=== PATIENT | male | born 1970 | race Caucasian/White ===

== ENCOUNTER 2025-06-28 10:10 | Emergency (ER) | payer MEDICARE, SELFPAY ==
--- NOTE | 2025-06-28 10:29 | ED_ITS ---
HPI - Skin/Abscess/Foreign Bdy General Chief complaint: Skin/Abscess/Foreign Body Stated complaint: shingles symptoms? Time Seen by Provider: 06/28/25 10:35 Source: patient Mode of arrival: ambulatory Limitations: no limitations History of Present Illness HPI narrative: Shivam is a 55-year-old male patient presenting to the clinic today with complaints of possible rash. He reports he noticed the rash this morning on his back, left side, and abdomen. States the rash is painful. Denies any fevers, or chills. Denies any environmental changes. Has not taken any medications for his symptoms. Related Data Home Medications ?Medication ?Instructions ?Recorded ?Confirmed ?Last Taken ?Type albuterol sulfate 90 mcg/actuation inhalation 06/28/25 Unknown History aerosol inhaler hydrocodone 5 mg-acetaminophen 325 tablet 06/28/25 Un known History mg tablet lisinopril 30 mg tablet mg 06/28/25 Unknown History methocarbamol 500 mg tablet mg 06/28/25 Unknown Histo ry tiotropium bromide 2.5 inhalation 06/28/25 Unknown History mcg/actuation mist for inhalation (Spiriva Respimat) Allergies Allergy/AdvReac Type Severity Reaction Status Date / Time No Known Allergies Allergy Verified 06/28/25 10:26 Review of Systems Review of Systems: Pertinent positives per HPI. Patient denies any fever, chills, headache, visual changes, dizziness, cough, runny nose, sore throat, shortness of breath, chest pain, palpitations, nausea, vomiting, diarrhea, constipation, abdominal pain, or any urinary issues. PMFSH Comments At the time of my signature, I reviewed and agree with the nursing past medical, surgical, social, and family history. There is no relevant family history pertinent to the patient complaint. Exam Narrative: General: Well-developed, well nourished, in no apparent distress Head: Normocephalic, atraumatic. Cardio: Regular rate and rhythm, s1 and s2 normal, no murmur appreciated. Resp: Clear to auscultation bilaterally, no rhonchi, rales, wheezing or rubs. Integumentary: [place], warm, and dry, red, raised, painful, erythematous base rash with vesicular lesions in clusters on the mid back, left lateral side, and mid chest consistent with herpes zoster Course Course Emergency Course: Portions of this record may have been created with voice recognition software. Level of Care: Express Care Visit Vital Signs Vital signs: Vital signs reviewed MDM - Skin/Abscess/Foreign Bdy MDM Narrative Medical decision making narrative: At the time of visit patient is resting comfortably on the exam table. Patient appears to be nontoxic. complaints of possible rash. He reports he noticed the rash this morning on his back, left side, and abdomen. States the rash is painful. Denies any fevers, or chills. Denies any environmental changes. Has not taken any medications for his symptoms. On exam patient has red, raised, painful, erythematous base rash with vesicular lesions in clusters on the mid back, left lateral side, and mid chest consistent with herpes zoster Plan: I suspect patient has herpes zoster. Prescription for acyclovir was sent to the pharmacy. Supportive measures were discussed with the patient and they voiced understanding discharge instructions and agrees to treatment plan. Return precautions reviewed Differential Diagnosis Differential diagnosis: Likely abscess of skin or subcutaneous tissue, viral exanthem, dermatophytosis, urticaria, herpes zoster, allergic reaction to drug, cellulitis, insect bites, impetigo and contact dermatitis Discharge Plan Discharge Clinical Impression: Herpes zoster Qualifiers: Herpes zoster complications: without complications Qualified Code(s): B02.9 - Zoster without complications Patient Disposition: Home Condition: Stable Instructions: Antibiotic Form, Shingles (ED) Additional Instructions: Take any prescription medication only as prescribed-acyclovir May apply lidocaine patches to the areas to help alleviate pain May take Tylenol/ibuprofen as needed for pain Rash is considered contagious until is crusted over-keep the area covered especially if it is draining Stay away from people who are , immunocompromise, or have not had the chickenpox vaccine Follow up with your PCP in 3-5 days if symptom persist. Patient Language: Faroese Prescriptions: New acyclovir 800 mg tablet 800 mg PO Q4H 7 Days Qty: 42 0RF Rx Instructions: while awake; give 5 doses in 24 hours No Action methocarbamol 500 mg tablet hydrocodone-acetaminophen 5-325 mg tablet lisinopril 30 mg tablet albuterol sulfate 90 mcg/actuation HFA aerosol inhaler INHALATION Spiriva Respimat 2.5 mcg/actuation mist INHALATION Follow-up/Referrals: Harms,Alli Woods M.D. [Primary Care Provider] Time of Disposition: 10:33 Quality NIHSS Nursing Documentation ED NIHSS nursing documentation: reviewed/agree
[2025-06-28 10:31] VITALS: BP 136/72; PULSE 73; RESP 18; TEMP 36.2; O2SAT 100
--- OUTSIDE RECORDS SUMMARY | 2025-06-28 10:47 | XMS_ITS | Clinical Summary ---
Author Organization [facility] Building A Address [address] [place] [address] Care Team Providers Care Strapping Machine Operator Name Role Phone Alli Rowan MD Primary Care Provider [phone] Darrius Singletary PT Unavailable Unavaila Milena Carroll LOG HANDLER Unavailable Unavailab le Allergies No known active allergies Medications meloxicam (MOBIC) 15 mg tabletIndicatio ns:Osteoarthrit is Take 1 tablet (15 mg total) by mouth daily 90 tablet 3 10/27/19 25 026 Active albuterol HFA (PROVENTIL HFA,VENTOLIN HFA,PROAIR HFA) 90 mcg/actuation inhalerIndicati ons:Chronic obstructive pulmonary disease, unspecified COPD type (HCC) Inhale 2 puffs every 4 (four) hours as needed for wheezing 9 g 3 10/27/19 25 Active calcitonin (MIACALCIN) 200 unit/actuation nasal sprayIndication s:Post-Menopaus al Osteoporosis ADMINISTER 1 SPRAY INTO ONE NOSTRIL DAILY 4 mL 1 11/12/19 25 026 Active lisinopriL (PRINIVIL,ZESTR [place]) 30 mg tabletIndicatio ns:Benign hypertension Take 1 tablet by mouth once daily 100 tablet 1 04/07/20 25 Active methocarbamoL (ROBAXIN) 500 mg tablet Take 1 tablet (500 mg total) by mouth 2 (two) times a day 20 tablet 05/22/20 25 Active HYDROcodone-yoselyn taminophen (NORCO) 5-325 mg per tabletIndicatio ns:Pain Take 1 tablet by mouth every 6 (six) hours as needed for pain for up to 16 doses 16 tablet 05/22/20 25 Active Additional Information Patient not taking.Reported on 05/29/2025 Spiriva Respimat 2.5 mcg/actuation inhalerIndicati ons:Chronic obstructive pulmonary disease, unspecified COPD type (HCC) INHALE 2 SPRAY(S) BY MOUTH ONCE DAILY 4 g 06/05/20 25 Active Spiriva Respimat 2.5 mcg/actuation inhalerIndicati ons:Chronic obstructive pulmonary disease, unspecified COPD type (HCC) INHALE 2 SPRAY(S) BY MOUTH ONCE DAILY 4 g 04/26/20 25 025 Discontinued Hospital, Clinic, or Other Facility Administered Medication Ordered Dose Route Frequency Start Date End Date Status lidocaine (XYLOCAINE) 20 mg/mL (2 %) injection 4 mLIndications:Admi nistration of Local Anesthesia 4 mL OTHER One-Time Injection 05/29/2025 05/29/2025 Ended methylPREDNISolone acetate (DEPO-medrol) injection 80 mgIndications:Troc hanteric bursitis of left hip 80 mg intra-artic One-Time Injection 05/29/2025 05/29/2025 Ended Active Problems Problem Noted Date Diagnosed Date Chronic pain syndrome 11/23/2024 Assessment & Plan (11/23/2024 8:38 AM SYRUP MIXER ASSISTANT): See discussion as above. Completed online form. Medicare annual wellness visit, subsequent 10/27 Assessment & Plan (10/27/2024 10:33 AM SYRUP MIXER ASSISTANT): In regard to health maintenance, Colonoscopy- UTD PSA- UTD Influenza vaccine- Declined Pneumococcal vaccine- Declined Shingrix vaccine- Declined Eat a healthy diet: focus on lean meats and proteins, more fruits, vegetables and whole grains and low in sugars and fats. Limit red meat and avoid processed meat. Maintain a healthy weight; avoid being overweight. Aim for a normal body mass index (BMI) of 18.5-24.9. Help learning to eat healthier, we can set up appointment with freight loading supervisor/flake cutter operator. Have an active lifestyle, strive for 30 minutes of moderate exercise 5 times a week and strength or resistance training at least twice a week. Use broad-spectrum (UVA+UVB) sunscreen with SPF 30 or greater, is water resistant, limit time spent in the sun (10 am-4pm), wear hat, wear UV protective clothing, wear sunglasses. Never use a tanning bed. Skin that was irradiated may be more sensitive over your lifetime. Do not smoke or chew tobacco; participate in a smoking cessation program. Complete alcohol cesation Trochanteric bursitis of left hip 10/27/2024 Assessment & Plan (11/23/2024 8:38 AM SYRUP MIXER ASSISTANT): Continue f/u with orthopedics and continue on meloxicam and injections Assessment & Plan (10/27/2024 10:25 AM SYRUP MIXER ASSISTANT): Continued L hip pain but states is controlled with Meloxicam. Refill placed. Continues to use Aleve and Tylenol in the afternoon/evening. Mother states they are wanting to talk about Marijuana card as well. Informed this provider is not licensed in that. Will continue to monitor. Also follows with ortho. BMI 22.0-22.9, adult 10/27/2024 Assessment & Plan (03/08/2025 12:19 PM CDT): Weight appropriate for patient. Assessment & Plan (10/27/2024 10:25 AM SYRUP MIXER ASSISTANT): Weight appropriate for patient. Chronic obstructive pulmonary disease 10/27/2024 Assessment & Plan (11/23/2024 8:37 AM SYRUP MIXER ASSISTANT): Reviewed pulmonary toilet. Ontinues on tiotropium and albuterol. Assessment & Plan (10/27/2024 10:26 AM SYRUP MIXER ASSISTANT): Stable. Continues with daily and persistent dry cough with no sputum production. Will continue to monitor. Refilled Spiriva and albuterol inhaler PRN. Alcoholic cirrhosis, unspecified whether ascites present 10/27/2024 Assessment & Plan (10/27/2024 10:32 AM SYRUP MIXER ASSISTANT): Continues to monitor liver function. Stable and controlled. Encouraged alcohol cessation. Will continue to monitor. Heterozygous alpha 1-antitrypsin deficiency 11/0 01/2024 Assessment & Plan (10/27/2024 10:31 AM SYRUP MIXER ASSISTANT): Encouraged smoking cessation. Will continue to monitor. Alcoholism 08/14/2024 Assessment & Plan (10/27/2024 10:31 AM SYRUP MIXER ASSISTANT): Encouraged complete alcohol cessation. Will continue to monitor. Hypertension, essential 04/25/2024 Assessment & Plan (10/27/2024 9:57 AM SYRUP MIXER ASSISTANT): Blood pressure stable and well controlled. Will continue to monitor. Continues on Lisinopril. Assessment & Plan (04/25/2024 10:00 AM CDT): Blood pressure is well controlled, continue present management with lisinopril 30 mg daily. Closed fracture of left distal radius and ulna 0 12/31/2023 Assessment & Plan (12/31/2023 11:54 AM CDT): Referred to Plastic/hand specialists. Instructed to continued rest, ice and elevation. Keep splint in place. Neurovascularly intact. Pain has been managed well with acetaminophen, discussed use of ibuprofen. Closed fracture of twelfth thoracic vertebra Hyponatremia 09/28/2020 Assessment & Plan (09/05/2022 8:28 AM SYRUP MIXER ASSISTANT): 52M who presented to the emergency department from the bar due to cramping in his hands and legs bilaterally, worst in his left hand after drinking a reported 4 beers. Given his history of chronic alcohol abuse, beer potomania should be considered as a differential. As this patient had biphasic wheeze and bronchial breath sounds in the absence of a noted diagnosed respiratory illness, SIADH due to an underlying pathology should also be considered. - Fluid restriction 1L/day - Stop IV Fluids - Serum and urine osmolality - Latest Na+ 133 (09/04), watch Na+ closely Microcytic anemia 09/28/2020 Assessment & Plan (04/25/2024 10:00 AM CDT): Will check iron profile with labs. Again encouraged patient to limit ETOH intake. Encouraged healthy diet, eating several small meals frequently throughout the day. Increase iron rich foods. Assessment & Plan (09/04/2022 8:31 AM SYRUP MIXER ASSISTANT): Pt anemic at 11.4. Microcytic as MCV 79.6. Likely iron deficiency anemia. - Iron studies +/- replacement Alcohol abuse 05/01/2020 Assessment & Plan (10/27/2024 9:57 AM SYRUP MIXER ASSISTANT): Decreased since moved in with his mother. Continue to educate on limiting drinking or cessation if possible. Assessment & Plan (04/25/2024 9:59 AM CDT): Discuss long-term health consequences of chronic alcohol use. Discussed need to stopped drinking to improve liver function and overall health. Recommended patient start vitamin supplement, such as men's daily multivitamin in addition to folic acid. Will check nutritional deficiencies as labs Assessment & Plan (09/04/2022 8:27 AM SYRUP MIXER ASSISTANT): History of chronic alcohol abuse. Patient states he drinks 18-19 cans of beer per week. He reports he last drank at the bar on 09/03, where after four beers he attended he ED. - prn librium as per CIWA protocol Nausea 03/26/2020 Assessment & Plan (03/26/2020 3:50 PM CDT): Briefed on brat diet. Avoid stimulating items. Diarrhea 03/26/2020 Assessment & Plan (03/26/2020 3:50 PM CDT): May use qeku-ljq-nhaiast anti spasmodic as directed on package. Increase hydration. Tobacco dependence 12/15/2017 Assessment & Plan (10/27/2024 9:56 AM SYRUP MIXER ASSISTANT): Precontemplative. Encouraged complete smoking cessation. Discussed different types of medications & hpyh-wfq-hzncjeq aides to help with cessation. He does admit to decreased smoking due to not drinking at his mother's house or smoking in her house. Assessment & Plan (09/04/2022 8:27 AM SYRUP MIXER ASSISTANT): Pt states he smokes when he drinks, which varies but would amount to 6 cigarettes per day. - Counseled on smoking cessation Assessment & Plan (10/24/2019 1:45 PM SYRUP MIXER ASSISTANT): Does not wish to stop this time. Advised on methods to stop smoking if he needs help to contact us. Elevated LFTs 12/15/2017 Assessment & Plan (10/24/2019 1:46 PM SYRUP MIXER ASSISTANT): Will await follow-up labs and CBC Vitamin D deficiency 02/24/2014 Overview (01/15/2017): VITAMIN D DEFICIENCY NOS Assessment & Plan (10/24/2019 1:46 PM SYRUP MIXER ASSISTANT): Will await pending lab work. Advised to maintain using D3 daily and obtain 15 minutes [place] daily. Osteoporosis Overview (09/28/2020): Osteoporosis Bronchitis Overview (09/28/2020): Bronchitis Resolved Problems Problem Noted Date Diagnosed Date Resolved Date Hypertension 05/20/2016 10/27/2024 Overview (01/15/2017): BENIGN HYPERTENSION Assessment & Plan (09/04/2022 8:07 AM SYRUP MIXER ASSISTANT): 52yo male with longstanding history of HTN. - Elevated BP on arrival around 160/94 - Has now settled to 126/74 - Continue lisinopril 30mg daily Assessment & Plan (10/24/2019 1:45 PM SYRUP MIXER ASSISTANT): Will current we continue lisinopril. Advised to limit salt diet. Follow-up in 6 months Encounters Date Type Department Care Team Description 05/29/2025 2:45 PM CDT Office Visit [facility] Orthopedics and Sports Medicine [address] [place] [address] [address] [place] [address] Rose Boggs PA Trochanteric bursitis of left hip (Primary Dx) 05/24/2025 Telephone [facility] [address] [place] [address] Alli Rowan MD ED follow up call-pt referral requested 05/24/2025 [facility] ED Outreach [facility] Organization [address] [place] [address] Emmy Da Silva MA 05/23/2025 Telephone [facility] Orthopedics and Sports Medicine [address] [facility] [address] [place] [id number] Toma Payton MA 05/22/2025 10:50 PM CDT - 05/23/2025 12:15 AM CDT Emergency [facility] Emergency Department [address] [place] [address] Fall, initial encounter (Primary Dx) Discharge Disposition: Discharge to home or self care 05/07/2025 Telephone [facility] [address] [address] Alli Rowan MD from Last 3 Months Immunizations Immunization Administration Dates Next Due DT 05/11/1981 DTP 09/16/1973,1971,1971 ,1971 Influenza, Unspecified 03/08/2025(Deferr ed: Patient Refused),10/27/2024(Deferred: Patient Refused),06/11/2024(Deferred: Patient Refused),06/11/2024(Deferred: Patient Refused),04/25/2024(Deferred: Patient Refused),12/31/2023(Deferred: Patient Refused),07/11/2023(Deferred: Patient Refused),07/11/2023(Deferred: Patient Refused),07/09/2023(Deferred: Patient Refused),07/09/2023(Deferred: Patient Refused),10/11/2022(Deferred: Patient Refused),09/14/2022(Deferred: Patient Refused),07/11/2022(Deferred: Patient Refused),07/11/2022(Deferred: Patient Refused),07/09/2022(Deferred: Patient Refused),06/11/2022(Deferred: Patient Refused),04/24/2022(Deferred: Patient Refused),04/24/2022(Deferred: Patient Refused),12/15/2021(Deferred: Patient Refused),10/11/2021(Deferred: Patient Refused),06/11/2021(Deferred: Patient Refused),06/11/2021(Deferred: Patient Refused),06/11/2021(Deferred: Patient Refused),06/02/2021(Deferred: Patient Refused),12/17/2020(Deferred: Patient Refused),10/11/2020(Deferred: Patient Refused),07/11/2020(Deferred: Patient Refused),10/24/2019(Deferred: Patient Refused),10/11/2019(Deferred: Patient Refused),10/11/2019(Deferred: Patient Refused),10/11/2019(Deferred: Patient Refused),12/06/2018(Deferred: Patient Refused),10/11/2018(Deferred: Patient Refused),08/23/2018(Deferred: Patient Refused - Never) MMR 03/13/1975 Measles 05/03/1972 Surgical History Surgery Date Site/Laterality Comments OPEN REDUCTION INTERNAL FIXATION 10/11/2007 - 10/10/2008 ORIF OTHER SURGICAL HISTORY 10/11/2014 - 10/10/2015 Pneumonia: Medical Management SHOULDER SURGERY 09/10/2017 - 10/10/2017 repaired shoulder fracture COLONOSCOPY 05/13/2021 Medical History Medical History Date Comments Hypertension Hypertension Osteoporosis Osteoporosis Alcoholism (HCC) alcoholism Hx Other Medical 09/27/2012 ER visit for ri ght flank pain Bronchitis Bronchitis Hx Other Medical Pneumonia Alcohol abuse Family History Medical History Relation Name Comments Diabetes type II Mother Preeti Diabetes -T ype II; Relation Name Status Comments Father Step Father Alive Mother Preeti Alive Sister Jacqueline Alive Social History Tobacco Use Types Packs/Day Years Used Date Smoking Tobacco: Every Day Cigarettes 0.5 34.3 Started: 1991 Smokeless Tobacco: Never Tobacco Cessation:Ready to Q uit: Not Asked; Counseling Given: Not Answered Comments:Pt claims that he smokes 1 cig per beer, does not smoke until he drinks Alcohol Use Standard Drinks/Week Comments Yes 12 (1 standard drink = 0.6 oz pu re alcohol) Daily AUDIT-C Answer Date Recorded Q1: How often do you have a drink containing alc ohol? Monthly or less 11/30/2024 Q2: How many drinks containi ng alcohol do you have on a typical day when you are drinking? 1 or 2 11/30/2024 Q3: How often do you have si x or more drinks on one occasion? Monthly 11/30/2024 PHQ-2 Answer Date Recorded PHQ-2 Total Score (If total score is 3 or more points, staff should administer the PHQ-9) 0 03/08/2025 Personal Safety Answer Date Recorded Have you ever been in or are you currently in a harmful physical or emotional relationship or is someone making you feel afraid or unsafe? Denies 05/22/2025 Sex and Gender Information Value Date Recorded Sex Assigned at Not on file Legal Sex Male 3:12 PM SYRUP MIXER ASSISTANT Gender Identity Not on file Sexual Orientation Not on file Obstetrics History Last Filed Vital Signs Vital Sign Reading Time Taken Comments Blood Pressure 140/89 05/29/2025 2:00 PM CDT Pulse 81 05/29/2025 2:00 PM CDT Temperature 35.9 C (96.7 F) 05/22/2025 10:04 PM CDT Respiratory Rate 20 05/22/2025 10:04 PM CDT Oxygen Saturation 97% 05/22/2025 10:04 PM CDT Inhaled Oxygen Concentration - - Weight 79.5 kg (175 lb 3.2 oz) 05/29/2025 2:00 P M CDT Height 182.9 cm (6') 05/29/2025 2:00 PM CDT Body Mass Index 23.76 05/29/2025 2:00 PM CDT Plan of Treatment Health Maintenance Due Date Last Done Comments Hepatitis B Screening 1989 Pneumococcal vaccine <65 (1 of 2 - PCV) 1990 DTaP/Tdap/Td Vaccine (6 - Tdap) 05/11/1991 05/11/1981, 09/16/1973, 1971, Additional history exists Zoster Vaccine (1 of 2) 2021 Regular Well Visit/Exam 18-64 10/27/2025, 10/18/2023, 09/14/2022 Depression Screening 03/08/2026 03/08/2025, 11/22/2024, 10/27/2024, Additional history exists Colon Cancer Screening-Colonoscopy 05/13/2026 05/13/2021, 05/13/2021 Prostate Cancer Screening-PSA 08/14/2026 08/14/2024, 09/14/2022 Hepatitis C Screening Completed 03/01/2023 Influenza Vaccine Discontinued Medical Devices Implanted Type Area Tape Making Machine Operator Device Identifier Shelf Expiration Date Model / Serial / Lot Nail Intramedullary Multiloc Titanium Aluminum Niobium Short Straight L160 Mm Od8 Mm Odsec9.5 Mm Humeral Left Cannulated Sterile Blue - Sn/A - [id number] Implanted:Qty: 1 on 09/21/2017 by Micah Blake MD at [facility] Jobaline I 02/07/2018 [id number] / N/A / Screw Bone Multiloc Titanium 3.8 Mm Full Thread L46 Mm Od4.5 Mm Odsec3.9 Mm Proximal Humerus Drill Self Cutting Blunt Tip Countersinkable Head Suture Hole Nonsterile Gold - Sn/A - [id number] Implanted:Qty: 2 on 09/21/2017 by Micah Blake MD at [facility] Synthes I [id number] / N/A / Screw Bone Expert Titanium T25 Full Thread Blunt L32 Mm Od4 Mm Odsec8 Mm Humerus 2 Lead Self Tap Lock Stardrive Nonsterile Blue Intramedullary Nail System - Sn/A - [id number] Implanted:Qty: 1 on 09/21/2017 by Micah Blake MD at [facility] [employer]ynthe[employer] I [id number] / N/A / Nail Intramedullary Multiloc Titanium Aluminum Niobium Short Straight L160 Mm Od8 Mm Odsec9.5 Mm Humeral Right Cannulated Sterile Blue - [id number] Implanted:Qty: 1 on 09/21/2017 by Micah Blake MD at [facility] Jobaline I [id number] / / Procedures Procedure Name Priority Date/Time Associated Diagnosis Comments PA ARTHROCENTESIS ASPIR&/INJ MAJOR JT/BURSA W/O US Routine 05/29/2025 2:45 PM CDT Trochanteric bursitis of left hip XR SHOULDER LEFT 2 OR MORE VIEWS ED 05/22/2025 10:32 PM CDT PSA SCREEN Routine 08/14/2024 9:36 AM SYRUP MIXER ASSISTANT Encounter for prostate cancer screening HEPATITIS PANEL, ACUTE Routine 3 11:33 AM CDT Alcoholic cirrhosis of liver with ascites (HCC) COLONOSCOPY 05/13/2021 10:09 AM CDT from Last 3 Months or Most Recently Relevant to Health Maintenance Results * PA ARTHROCENTESIS ASPIR&/INJ MAJOR JT/BURSA W/O US (05/29/2025 2:45 PM CDT) Narrative Rose Boggs PA - 05/29/2025 2:45 PM CDT Rose Boggs PA 05/29/2025 2:27 PM Greater trochanteric bursa injection Performed by: Rose Boggs PA Authorized by: Rose Boggs PA Greater Trochanteric Bursa Injection: Consent Given by: Patient Site marked: the procedure site was marked Timeout: prior to procedure the correct patient, procedure, and site was verified Verbal consent obtained?: Yes Prior to the start of the procedure, verbal verification by the procedure participant(s) confirmed (as applicable): corect patient idenity; correct site/side marked and visible; agreement on the procedure to be done; correct patient positioning; an accurate procedure consent form, relevant images and results correctly labeled and displayed; any safety precautions based on clinical history and/or medication use have been addressed.: Supporting Documentation: Indications: Pain and therapeutic Procedure Details: Site: Left Greater Trochanteric Bursa Prep: patient was prepped and draped in usual sterile fashion Patient position: Sidelying Needle Size: 22 G Ultrasound guidance: No Approach: Lateral Medications: 80 mg methylPREDNISolone acetate 80 mg/mL; 4 mL lidocaine 20 mg/mL (2 %) Patient tolerance: Patient tolerated the procedure well with no immediate complications us Rose RUDOLPH IN CLINIC/BEDSIDE ORD ERABLES Final Result * XR Shoulder Left 2 or More Views (05/22/2025 10:32 PM CDT) Anatomical Region Laterality Modality Upper Extremities, Shoulder Left Comp uted Radiography 05/22/2025 10:3 8 PM CDT Narrative 05/22/2025 10:48 PM CDT EXAM DESCRIPTION: XR SHOULDER LEFT 2 OR MORE VIEWS REASON FOR STUDY: pain Pt tripped over a shoe in his bedroom and fell. Pt landed on his left shoulder and is not able to raise his arm. Pt denies hitting head. He did scrape his left knee. Pt had a couple of beers before he fell. TECHNIQUE: 4 radiographic view(s) of the left shoulder . COMPARISON: 02/02/2018 FINDINGS: BONES/JOINTS: Internal fixation of the proximal left humerus is again noted with a tamie and 4 screws. The mid aspect of the tamie is broken with displacement and overlap of the fragments. This appears unchanged from the prior study of 2018. The bones are osteopenic. No fracture of the bone is seen. Mild degenerative changes of the left shoulder are noted. SOFT TISSUES: Within normal limits. IMPRESSION: No acute osseous abnormality. THIS IS AN ELECTRONICALLY VERIFIED FINAL REPORT 05/22/2025 10:48 PM - Electronically signed by Jamil Tejeda M.D. KH: MAXIMINO Report ID: [id number] Reading Location: [id number] Procedure Note Jamil Tejeda MD - 05/22/2025 EXAM DESCRIPTION: XR SHOULDER LEFT 2 OR MORE VIEWS REASON FOR STUDY: pain Pt tripped over a shoe in his bedroom and fell. Pt landed on his leftshoulder and is not able to raise his arm. Pt denies hitting head. He did scrapehis left knee. Pt had a couple of beers before he fell. TECHNIQUE: 4 radiographic view(s) of the left shoulder . COMPARISON: 02/02/2018 FINDINGS: BONES/JOINTS: Internal fixation of the proximal left humerus is againnoted with a tamie and 4 screws. The mid aspect of the tamie is broken with displacement and overlap of the fragments. This appears unchanged fromthe prior study of 2017. The bones are osteopenic. No fracture of the boneis seen. Mild degenerative changes of the left shoulder are noted. SOFT TISSUES: Within normal limits. IMPRESSION: No acute osseous abnormality. THIS IS AN ELECTRONICALLY VERIFIED FINAL REPORT 05/22/2025 10:48 PM - Electronically signed by Jamil Tejeda M.D. KH: MAXIMINO Report ID: [id number] Reading Location: [place] [address] Catr[place]ita RUDOLPH IMG XR PROCEDURES Final Result * PSA screen (08/14/2024 9:36 AM SYRUP MIXER ASSISTANT) PSA-Total 1.35 <=3.90 ng/mL Comment: Interpretive Data AGE SEX REFERENCE INTERVAL 0 minutes-150 years Female None 0 minutes-49 years Male None 50-59 years Male 0-3.90 60-69 years Male 0-5.40 70-79 years Male 0-6.20 80-150 years Male 0-6.20 The Quinten PSA Total assay procedure was used. Results from different manufacturers or methods may not be comparable. Serial testing should be performed using the same method. Current interpretive data last revised 22. Testing performed by: [address] [place] [address] Blood 08/14/2024 9:36 AM SYRUP MIXER ASSISTANT 08/14/2024 1:15 PM SYRUP MIXER ASSISTANT Deidra Benavides COMMUNITY MARKETING COORDINATOR LAB BLOOD ORDERABLES Final Result KORIN FISHER ([place]) [address] [facility] Department [place] [address] * (ABNORMAL) Hepatitis panel, acute (03/01/2023 11:33 AM CDT) Hep A IgM Nonreactive Nonreactive KORIN FISHER ([place]) Comment: Interpretive Data: If Hep A IgM Ab is reported as Equivocal, a new sample should be drawn in two weeks for testing. Current interpretive data was last revised on 19. Testing performed by: [address] [place] [address] Hep B core IgM Reactive(A) Nonreactive C JULIAN FISHER ([facility]) Comment: Critical Result Critical Result called to and read back by , DATE: 2023-03-01 20:36:31 BY: called to Arminda Cerda on 03/02/2023 11:05:31 CDT by Taylor Doss Interpretive Data If HepB Core IgM Ab is reported as Equivocal, a new sample should be drawn in two weeks for testing. Current interpretive data was last revised on 19. Testing performed by: [facility], [address] [place] [address]., [id number] Hep C Ab Nonreactive Nonreactive KORIN FISHER ([facility]) Comment: Interpretive Data Nonreactive: Antibodies to HCV not detected. Does NOT exclude the possibility of recent exposure to HCV. Equivocal: Equivocal for HCV antibodies. Supplemental molecular testing will be automatically performed to determine infection status in accordance with current CDC screening recommendations. Reactive: Positive for HCV antibodies. This may represent current or past HCV infection. Supplemental molecular testing will be automatically performed to determine current infection status in accordance with current CDC screening recommendations. Interpretive data was last revised on 2019. Testing performed by: [facility], [address] [place] [address]., [id number] HepBsAg Nonreactive Nonreactive KORIN FISHER ([facility]) Comment:Testing performed by : [address] [address] Blood 03/01/2023 11:3 3 AM CDT 03/01/2023 4:52 PM CDT Alli Rowan MD LAB MICROBIOLOGY - GENERA L ORDERABLES Final Result KORIN FISHER ([facility]) [address] [facility] Department [place] [address] * COLONOSCOPY (05/13/2021 10:09 AM CDT) Anatomical Region Laterality Modality Other Narrative Procedure Note Ozzie Messer MD - 05/13/2021 10:09 AM CDT [facility] Patient Name: Shivam Galvez Procedure Date: 05/13/2021 10:09 AM Date of : 1970 Admit Type: Outpatient Age: 51 Gender: Male Attending MD: Ozzie Messer M.D. [facility] 2 Note Status: Finalized Patient Profile: Refer to note in patient chart for documentation of history and physical. Procedure: Colonoscopy Indications: Screening for colorectal malignant neoplasm, Thisis the patient's first colonoscopy Referring MD: Alli Rowan M.D. Providers: Ozzie Messer M.D. Impression: - Hemorrhoids found on perianal exam. - One 5 mm polyp in the sigmoid colon, removed witha hot snare. Resected and retrieved. - Diverticulosis in the sigmoid colon. - The examination was otherwise normal. Recommendation: - Discharge patient to home. - Resume previous diet. - Continue present medications. - Await pathology results. - Repeat colonoscopy in 5 years for surveillance. - Return to primary care physician as previously scheduled. Medicines: Propofol per Anesthesia Complications: No immediate complications. Estimated Blood Loss: Estimated blood loss: none. Procedure: Pre-Anesthesia Assessment: - This assessment was completed [Time ofAssessment] prior to the administration of sedation. The benefits, risks and alternatives of theprocedure and sedation were discussed and informed consentwas obtained. All questions were answered. Please referto the signed informed consent document in the medical record. The bowel preparation used was Miralax via single dose instruction. The bowel preparation used was bisacodyl tablets via single dose instruction.The scope was passed under direct vision. TheColonoscope [id number] was introduced through the anus and advanced to the the cecum, identified by appendiceal orifice and ileocecal valve. The colonoscopy was performed without difficulty. The patient tolerated the procedure well. The qualityof the bowel preparation was good. Findings: Hemorrhoids were found on perianal exam. A 5 mm polyp was found in the sigmoid colon. The polyp was semi-pedunculated. The polyp was removed with a hot snare. Resectionand retrieval were complete. Verification of patient identification forthe specimen was done by the physician and nurse using the patient's name and date. Estimated blood loss was minimal. Multiple small-mouthed diverticula were found in the sigmoid colon. The exam was otherwise without abnormality. Electronically signed by Ozzie Messer M.D. Ozzie Messer M.D. 05/13/2021 11:40:56 AM Number of Addenda: 0 Note Initiated On: 05/13/2021 10:09 AM Procedure Code(s): --- Professional --- 33483, Colonoscopy, flexible; with removal of tumor(s), polyp(s), or other lesion(s) by snare technique Diagnosis Code(s): --- Professional --- K57.30, Diverticulosis of large intestine without perforation orabscess without bleeding K63.5, Polyp of colon K64.9, Unspecified hemorrhoids Z12.11, Encounter for screening for malignant neoplasm of colon CPT copyright 2019 [employer]. All rights reserved. The codes documented in this report are preliminary and upon wooden frame builder reviewmay be revised to meet current compliance requirements. Recognized by the [employer] for promoting quality in endoscopy us Ozzie Messer MD ENDOSCOPY PROCEDURES Final Re sult from Last 3 Months or Most Recently Relevant to Health Maintenance Insurance [facility] MEDICARE HMO MEDICARE [facility] MEDICARE HMO Advance Directives For more information, please contact: [phone] * Full Code (Latest Code Status on File) Date Activated Date Inactivated Comments 09/03/2022 10:53 PM 09/05/2022 6:53 PM * Full Code Date Activated Date Inactivated Comments 05/13/2021 9:46 AM 05/13/2021 4:28 PM * Full Code Date Activated Date Inactivated Comments 05/13/2021 9:46 AM 05/13/2021 9:46 AM * Full Code Date Activated Date Inactivated Comments 09/28/2020 8:40 PM 10/02/2020 9:26 PM * Full Code Date Activated Date Inactivated Comments 09/28/2020 9:59 AM 09/28/2020 8:40 PM Care Teams Strapping Machine Operator Relationship Specialty Start Date End Date Alli Rowan MD [address] [place] [address] PCP - General 09/17/17 Darrius Singletary, PT Physical Therapist Physical Therapy 11/08/17 Milena Holcomb, LOG HANDLER Physical Therapist Physical Therapy 01/20/18
--- OUTSIDE RECORDS SUMMARY | 2025-06-28 10:47 | XMS_ITS | Encounter Summary ---
Author Organization [facility] Healthcare Address [address] [place] [id number] Care Team Providers Care Advance Scout Name Role Phone Alli Rowan MD Primary Care Provider [phone] Darrius Singletary PT Unavailable Unavaila ble Milena Holcomb PTA Unavailable Unavailab le Encounter Details Date Type Department Care Team (Late st Contact Info) Description 09/17/2017 Orders Only [facility] [address] [place] [id number] Emmy Cherry, RT Social History Tobacco Use Types Packs/Day Years Used Date Smoking Tobacco: Every Day Smokeless Tobacco: Current Alcohol Use Standard Drinks/Week Comments Yes 0 (1 standard drink = 0.6 oz pur e alcohol) Sex and Gender Information Value Date Recorded Sex Assigned at Not on file Legal Sex Male 3:12 PM [employer] WORK[employer] Gender Identity Not on file Sexual Orientation Not on file documented as of this encounter Plan of Treatment Not on file documented as of this encounter Visit Diagnoses Not on filedocumented in this encounter Care Teams Advance Scout Relationship Specialty Start Date End Date Alli Rowan MD [facility] [address] PCP - General 09/17/17 Darrius Singletary, PT Physical Therapist Physical Therapy 11/08/17 Milena Holcomb PTA Physical Therapist Physical Therapy 01/20/18 documented as of this encounter
== END 2025-06-28 10:41 | disposition home or self-care (01) ==
PROVIDERS: Emergency Provider Nurse Practitioner Family; PCP Family Medicine
DX: B02.9 Zoster without complications (principal); I10 Essential (primary) hypertension; J44.9 Chronic obstructive pulmonary disease, unspecified
CPT/HCPCS: 99213; G0463